=== PATIENT | female | born 1965 | race Caucasian/White ===

== ENCOUNTER 2017-03-10 13:27 | Emergency (ER) | payer SELFPAY ==
[~2017-03-10] VITALS: Ht 160 cm; Wt 85.5 kg
[~2017-03-10 13:27] MED LIST: LEVO150T67 PO; TRAM-174 PO
[2017-03-10 13:42] VITALS: Ht 160 cm; Wt 85.5 kg
[2017-03-10] MEDS ORDERED: ONDANSETRON 4 MG INJ IV STA (14:14)
[2017-03-10] MEDS ORDERED: FAMOTIDINE 20 MG INJ IV STA (14:14)
[2017-03-10] MEDS ORDERED: SOD CHLORIDE 0.9% 1,000 ML IV STA (14:14)
[2017-03-10 14:39] LABS: ADD SCAN DIFF NO
[2017-03-10 14:40] LABS: BASOPHIL # 0.1 10^3/ul (0.0-0.1); BASOPHILS % 0.6 % (0.0-2.0); EOSINOPHILS # 0.2 10^3/ul (0.0-0.5); EOSINOPHILS % 1.4 % (0.0-7.0); HEMATOCRIT 37.4 % (37.0-47.0); HEMOGLOBIN 11.7 g/dl (12.0-16.0); LYMPHOCYTES # 2.8 10^3/ul (0.8-2.9); LYMPHOCYTES % 26.2 % (15.0-51.0); MEAN CORPUSCULAR HEMOGLOBIN 25.7 pg (29.0-33.0); MEAN CORPUSCULAR HGB CONC 31.3 g/dl (32.0-37.0); MEAN PLATELET VOLUME 9.8 fl (7.4-10.4); MONOCYTE # 0.8 10^3/ul (0.3-0.9); MONOCYTES % 7.4 % (0.0-11.0); NEUTROPHIL # 6.9 10^3/ul (1.6-7.5); PLATELET COUNT 496 10^3/UL (140-415); RED BLOOD COUNT 4.56 10^6/ul (4.20-5.40); RED CELL DISTRIBUTION WIDTH 14.3 % (11.5-14.5); WHITE BLOOD COUNT 10.7 10^3/ul (4.8-10.8)
[2017-03-10 14:56] LABS: ALBUMIN 4.3 g/dl (3.3-4.9); POTASSIUM 3.7 mmol/L (3.5-5.1)
[2017-03-10 14:58] LABS: BILIRUBIN,INDIRECT 0.5 mg/dl (0-1.1); BILIRUBIN,TOTAL 0.5 mg/dl (0.2-1.3); CREATININE 0.76 mg/dl (0.44-1.00)
[2017-03-10 14:59] LABS: ALBUMIN/GLOBULIN RATIO 1.04; CALCIUM 9.8 mg/dl (8.4-10.2); TOTAL PROTEIN 8.4 g/dl (6.1-8.1)
[2017-03-10] MEDS ORDERED: ONDA4TAB14 PO (16:37)
--- NOTE | 2017-03-10 16:41 | ERD ---
ER Documentation Chief Complaint Date/Time DATE: 03/10/17 TIME: 16:38 Chief Complaint VOMITING SINCE TUESDAY HPI This is a 51-year-old female who says she has had nausea vomiting on Tuesday and Tuesday last week. She had one episode Tuesday morning but no vomiting since then. The patient says she has no abdominal pain no diarrhea no fever no chest pain shortness of breath. She has normal urine output and bowel movements. She says she is here because she still feels that she is nauseated and really does not want to eat much. She says she will eat some but does not vomit. Again, she has no abdominal pain ROS All systems reviewed and are negative except as per history of present illness. Medications Home Meds Active Scripts Ondansetron (Ondansetron Odt) 4 Mg Tab.rapdis, 4 MG PO Q6H Y for NAUSEA AND/OR VOMITING, #10 TAB Prov:SHANNON LIANG DO 03/10/17 Discontinued Reported Medications Tramadol Hcl-Acetaminophen* (Tramadol Hcl-Acetaminophen*) 1 Tab Tablet, 1 TAB PO PRN 11/15/12 Levothyroxine Sodium* (Levothyroxine Sodium*) 150 Mcg Tablet, 150 MCG PO DAILY 11/15/12 Allergies Allergies: Coded Allergies: No Known Allergy (Unverified , 03/10/17) PMhx/Soc History of Surgery: Yes (TUBAL LIGATION) Anesthesia Reaction: No Hx Neurological Disorder: No Hx Respiratory Disorders: No Hx Cardiac Disorders: No Hx Psychiatric Problems: No Hx Miscellaneous Medical Probl: Yes (cholesterol) Hx Alcohol Use: No Hx Substance Use: No Hx Tobacco Use: No Smoking Status: Never smoker FmHx Family History: No coronary disease Physical Exam Vitals Vital Signs Date Time Temp Pulse Resp B/P Pulse Ox O2 Delivery O2 Flow Rate FiO2 03/10/17 13:42 98.3 76 18 148/90 96 Physical Exam Const: Well-developed, well-nourished Head: Atraumatic, normocephalic Eyes: Normal Conjunctiva, PERRLA, EOMI, normal sclera, no nystagmus ENT: Normal External Ears, Nose and Mouth, moist mucus membranes. Neck: Full range of motion. No meningismus, no lymphadenopathy. Resp: Clear to auscultation bilaterally, no wheezing, rhonchi, rales Cardio: Regular rate and rhythm, no murmurs, S1 S2 present Abd: Soft, non tender x 4, non distended. Normal bowel sounds, no guarding or rebound, no pulsitile abdominal masses or bruits Skin: No petechiae or rashes, no ecchymosis , no maculopapular rash Back: No midline or flank tenderness Ext: No cyanosis, or edema, FROM x 4, normal inspection, neurovascularly intact x 4 Neur: Awake and alert, STR 5/5 x 4, sensation intact x 4, no focal findings, cerebellum intact Psych: Normal Mood and Affect Result Diagram: 03/10/17 1425 03/10/17 1425 Results 24 hrs Laboratory Tests Test 03/10/17 14:25 White Blood Count 10.710^3/ul Red Blood Count 4.5610^6/ul Hemoglobin 11.7g/dl Hematocrit 37.4% Mean Corpuscular Volume 82.0fl Mean Corpuscular Hemoglobin 25.7pg Mean Corpuscular Hemoglobin Concent 31.3g/dl Red Cell Distribution Width 14.3% Platelet Count 93478^3/UL Mean Platelet Volume 9.8fl Neutrophils % 64.0% Lymphocytes % 26.2% Monocytes % 7.4% Eosinophils % 1.4% Basophils % 0.6% Nucleated Red Blood Cells % 0.0/100WBC Neutrophils # 6.910^3/ul Lymphocytes # 2.810^3/ul Monocytes # 0.810^3/ul Eosinophils # 0.210^3/ul Basophils # 0.110^3/ul Nucleated Red Blood Cells # 0.010^3/ul Sodium Level 141mmol/L Potassium Level 3.7mmol/L Chloride Level 99mmol/L Carbon Dioxide Level 30mmol/L Anion Gap 16 Blood Urea Nitrogen 13mg/dl Creatinine 0.76mg/dl Glucose Level 101mg/dl Calcium Level 9.8mg/dl Total Bilirubin 0.5mg/dl Direct Bilirubin 0.00mg/dl Indirect Bilirubin 0.5mg/dl Aspartate Amino Transf (AST/SGOT) 19IU/L Alanine Aminotransferase (ALT/SGPT) 27IU/L Alkaline Phosphatase 71IU/L Total Protein 8.4g/dl Albumin 4.3g/dl Globulin 4.10g/dl Albumin/Globulin Ratio 1.04 Lipase 43U/L Current Medications Medications (Trade) Dose Ordered Sig/Grisel Route PRN Reason Start Time Stop Time Status Last Admin Dose Admin Sodium Chloride (NS) 1,000 ml @ 1,000 mls/hr Q1H STAT IV 03/10/17 14:14 03/10/17 15:13 DC 03/10/17 14:33 Ondansetron HCl (Zofran Inj) 4 mg ONCE STAT IV 03/10/17 14:14 03/10/17 14:16 DC 03/10/17 14:32 Famotidine (Pepcid Iv) 20 mg ONCE STAT IV 03/10/17 14:14 03/10/17 14:16 DC 03/10/17 14:32 Procedures/MDM Blood work is unremarkable. Her exam is normal. No abdominal pain. She has had a bad food exposure or viral illness She feels better Departure Diagnosis: Primary Impression: Vomiting Vomiting type: unspecified Vomiting Intractability: non-intractable Nausea presence: with nausea Qualified Code: R11.2 - Non-intractable vomiting with nausea, unspecified vomiting type Condition: Stable Patient Instructions: Vomiting (6Y-Adult) SHANNON LIANG DO March 10, 2017 16:41
[2017-03-10 17:45] VITALS: BP 139/88; PULSE 75; RESP 19; TEMP 98.4
== END 2017-03-10 17:46 | disposition home or self-care (01) ==
LOC: E/R 13:27
DX: R11.2 Nausea with vomiting, unspecified (principal)
CPT/HCPCS: 36415; 80053; 83690; 85025; 96374; 96375; 99284; J2405; J7030

== ENCOUNTER 2017-07-26 08:44 | Emergency (ER) | payer MEDICAID ==
[~2017-07-26] VITALS: Wt 78.9 kg
[~2017-07-26 08:44] MED LIST changes: -LEVO150T67 PO; +ONDA4TAB14 PO; -TRAM-174 PO
[2017-07-26 10:30] LABS: AADO2 Arterial 13.5 mmHg (7.0-24.0); Allen Test ACCEPTAB; Arterial Base Excess 1.1 mmol/L (-3.0-3); Arterial COHb 0.3 % (0.0-3.0); Arterial Fraction of Oxyhgb 95.9 % (93.0-99.0); Arterial HCO3 25.8 mmol/L (22.0-26.0); Arterial MetHb 0.1 % (0.0-1.5); Arterial Total Hemglobin 12.3 g/dl (12.0-18.0); MODE ROOM AIR
[2017-07-26] MEDS ORDERED: AMOX500C2 PO (11:00)
[2017-07-26 11:13] VITALS: BP 134/75; PULSE 76; RESP 19; TEMP 98.6
--- NOTE | 2017-07-26 12:02 | ERA ---
ER Documentation Chief Complaint Date/Time DATE: 07/26/17 TIME: 11:58 Chief Complaint to carbon monoxide yesterday , wants to have check feels tired HPI Otherwise healthy 51-year-old female presenting with a chief complaint of pharyngitis and general malaise 2 days. Patient also states that she has had a carbon monoxide warning in her apartment where she cannot use certain appliances. Patient states that she thinks some of her symptoms are secondary to this possible exposure. Patient denies any neurological symptoms. Complains of mild headache. Denies fever, nausea, vomiting, diarrhea, constipation, meningismus, shortness breath, chest pain, difficulty breathing, dysphagia, odynophagia. Patient has not taken any medications to relieve the symptoms. No recent travel. Patient has no other complaints and describes no other associated manifestations. Nursing notes have been reviewed and are consistent with history given. ROS All systems reviewed and are negative except as per history of present illness. Medications Home Meds Active Scripts Amoxicillin* (Amoxicillin*) 500 Mg Cap, 500 MG PO TID for 7 Days, CAP Prov:ERAN GIRON PA-C 07/26/17 Ondansetron (Ondansetron Odt) 4 Mg Tab.rapdis, 4 MG PO Q6H Y for NAUSEA AND/OR VOMITING, #10 TAB Prov:SHANNON LIANG DO 03/10/17 Allergies Allergies: Coded Allergies: No Known Allergy (Unverified , 03/10/17) PMhx/Soc History of Surgery: Yes (TUBAL LIGATION) Anesthesia Reaction: No Hx Neurological Disorder: No Hx Respiratory Disorders: No Hx Cardiac Disorders: No Hx Psychiatric Problems: No Hx Miscellaneous Medical Probl: Yes (cholesterol, thyroid) Hx Alcohol Use: No Hx Substance Use: No Hx Tobacco Use: No Physical Exam Vitals Vital Signs Date Time Temp Pulse Resp B/P Pulse Ox O2 Delivery O2 Flow Rate FiO2 07/26/17 11:13 98.6 76 19 134/75 100 Room Air 07/26/17 08:49 98.1 82 18 163/73 99 Physical Exam Const: Overweight 51-year-old female no acute distress Head: Atraumatic Eyes: Normal Conjunctiva ENT: Normal External Ears, Nose. Erythematous oropharynx with enlarged tonsils bilaterally. No exudates visualized. Neck: Full range of motion..~ No meningismus. Resp: Clear to auscultation bilaterally. No tripoding, no accessory muscle use. Equal chest expansion bilaterally. No hot potato voice. Cardio: Regular rate and rhythm, no murmurs Abd: Soft, non tender, non distended. Normal bowel sounds Skin: No petechiae or rashes Back: No midline or flank tenderness Ext: No cyanosis, or edema Neur: Awake and alert Psych: Normal Mood and Affect Results 24 hrs Laboratory Tests Test 07/26/17 10:16 Blood Gas Specimen Source Blood arterial Arterial Blood Date Drawn 07/26/2017 10:20:22 AM Arterial Blood pH (Temp corrected) 7.413 Arterial Blood pCO2 (Temp correct) 41.3mmhg Arterial Blood pO2 (Temp corrected) 86.8mmHG Arterial Blood HCO3 25.8mmol/L Arterial Blood Base Excess 1.1mmol/L Arterial Blood Oxygen Saturation 96.3mmHG Humza Test ACCEPTAB Arterial Blood Gas Puncture Site Left Radial Arterial Blood Carboxyhemoglobin 0.3% Arterial Blood Methemoglobin 0.1% Blood Gas A-a O2 Differential 13.5mmHg Oxyhemoglobin Percent 95.9% Total Hemoglobin 12.3g/dl Blood Gas Temperature 37.0C Blood Gas Modality ROOM AIR FiO2 21.0% Blood Gas Notified Whom MDA Blood Gas Notified Time 07/26/2017 10:30:09 AM Procedures/MDM 51-year-old female presenting with the chief complaints of general malaise and pharyngitis as described in the history and physical examination. Due to possible exposure of carbon monoxide I presented the case my attending Dr. Lopez who suggested getting an ABG. ABG was obtained. ABG was unremarkable. At this time I will suspicion for carbon monoxide poisoning, airway obstructive pathologies, or serious bacterial infection. Most likely diagnosis is pharyngitis viral versus bacterial. Patient will be discharged with azithromycin due to penicillin allergy. Will also be prescribed ibuprofen for discomfort and inflammation. I have spoke with the patient regarding their condition and future management. They have verbally responded that they understand their status and treatment plan. The patients vitals are stable, and their current condition is appropriate for discharge. The patient will be given discharge instructions with return precautions. Departure Diagnosis: Primary Impression: Pharyngitis Qualified Code: J02.9 - Pharyngitis, unspecified etiology Condition: Stable Patient Instructions: Pharyngitis, Strep (Presumed) Additional Instructions: Bella un seguimiento con quintana PCP dentro de los prximos 1-3 glover para danika evaluaci n ms completa y danika posible derivacin a un especialista. Devuelva el departamento de emergencia inmediatamente si los sntomas empeoran o cambian. Si tiene alguna pregunta con respecto a los medicamentos, consulte con quintana farmac utico o con nosotros antes de salir. Si se producen reacciones adversas mientras ariella flavio medicamentos, suspenda el tratamiento y regrese inmediatamente al servicio de urgencias. [place] flavio medicamentos segn las indicaciones y complete el curso completo del tratamiento. ERAN GIRON PA-C Jul 26, 2017 12:02
== END 2017-07-26 11:14 | disposition home or self-care (01) ==
LOC: FTE 08:44
DX: J02.9 Acute pharyngitis, unspecified (principal)
CPT/HCPCS: 36600; 82803; Z7502; 99283

== ENCOUNTER 2017-09-07 14:07 | Emergency (ER) | payer SELFPAY ==
[~2017-09-07] VITALS: Wt 82.2 kg
[~2017-09-07 14:07] MED LIST changes: +AMOX500C2 PO
[2017-09-07 14:11] VITALS: Wt 82.2 kg
[2017-09-07] MEDS ORDERED: SOD CHLORIDE 0.9% 1,000 ML IV STA (16:19)
[2017-09-07] MEDS ORDERED: KETOROLAC 30 MG INJ IV STA (16:19)
[2017-09-07] MEDS ORDERED: ONDANSETRON 4 MG INJ IV STA (16:19)
[2017-09-07] MEDS ORDERED: morphine 4 MG/ML VIAL IV STA (16:19)
[2017-09-07 17:27] VITALS: BP 128/76; PULSE 76; RESP 20; TEMP 98.2
[2017-09-07] MEDS ORDERED: CEPHALEXIN 500 MG CAP PO ONE (18:00)
--- NOTE | 2017-09-07 18:15 | RADRPT ---
PROCEDURE: CT Abdomen and Pelvis without contrast. CLINICAL INDICATION: Abdominal and pelvic pain. Flank pain. TECHNIQUE: CT scan of the abdomen and pelvis without contrast was performed. Coronal and sagittal reformatted images were obtained from the axial source images. Images were reviewed on a high-[employer] PACS workstation. Total exam DLP is 918.22 mGy-cm. CTDIvol is 15.58 mGy. One or more of the f ollowing dose reduction techniques were used: Automated exposure control, adjustment of the mA and/o r kV according to patient size, use of iterative reconstruction technique. COMPARISON: Right upper quadrant abdomen ultrasound dated 10/07/2013 which demonstrated gallstones in the gallbladder. FINDINGS: The lung bases are normal. There is no pleural effusion. The liver is normal in size and attenuation. There is no focal hepatic lesion. The gallbladder is surgically absent with clips noted in the gallbladder bed. The bile ducts are nor mal. The spleen is normal in size. There is no focal splenic lesion. Both adrenals are normal with no enlargement or mass. The pancreas is unremarkable with no mass or evidence of pancreatitis. There is a nonobstructing 0.2 cm calculus in the mid right kidney. There is no right hydronephrosis. There is no right renal mass. The right ureter is normal. There is no left renal calculus. There is an obstructing 0.4 cm calculus in the proximal left ureter at the L2-3 level. There is associated m oderate left hydronephrosis. There is mild left renal atrophy and thinning of the left renal parenc hyma indicating this may be a chronic process. The left ureter is otherwise normal. The abdominal aorta is not dilated. There is no retroperitoneal lymphadenopathy or mass. There is no pelvic lymphadenopathy or mass. The bladder and distal ureters are normal. The appendix is well seen and appears normal. The bowel and mesentery are normal. There is no free fluid or free gas. The osseous structures are unremarkable with no fracture or lytic lesion. IMPRESSION: 1. Status post cholecystectomy. 2. Nonobstructing 0.2 cm calculus in the mid right kidney. 3. Obstructing 0.4 cm calculus in the proximal left ureter at the L2-3 level with resultant moderat e left hydronephrosis. 4. Thinning of the left renal parenchyma indicating this may be chronic left hydronephrosis. 5. Normal appendix. 6. Otherwise unremarkable study. RPTAT: QQ .David Ga MD, MD Date Time Electronically viewed and signed by .David Ga MD, on 09/07/2017 18:14 .R/
[2017-09-07] MEDS ORDERED: CEPH-443 PO (18:57)
[2017-09-07] MEDS ORDERED: HYDR-902 PO (18:57)
[2017-09-07] MEDS ORDERED: ONDA4TAB14 PO (18:57)
[2017-09-07] MEDS ORDERED: IBUP-1542 PO (19:00)
--- NOTE | 2017-09-07 20:15 | ERD ---
ER Documentation Chief Complaint Chief Complaint pt. states "left kidney pain", nausea HPI Patient is a 52-year-old female with a history of kidney stones who presents with left-sided flank pain. It started 2 days ago. Sharp in nature and comes and goes. Today was worse. She tried Aleve. She has had no fevers but she felt chills. She says that it feels like a kidney stone. She does not currently have a primary doctor. Upon review of old medical records this is the patient's sixth visit to the ER since 2012. ROS All systems reviewed and are negative except as per history of present illness. Medications Home Meds Active Scripts Ibuprofen* (Motrin*) 600 Mg Tab, 600 MG PO Q6H Y for PAIN AND OR ELEVATED TEMP, #30 TAB Prov:SHELBY COWAN MD 09/07/17 Ondansetron (Ondansetron Odt) 4 Mg Tab.rapdis, 4 MG PO Q6H Y for NAUSEA AND/OR VOMITING, #30 TAB Prov:SHELBY COWAN MD 09/07/17 Hydrocodone/Acetaminophen (Ch[place]wick 10-325 Tablet) 1 Each Tablet, 1 TAB PO Q6H Y for PAIN, #12 TAB Prov:SHELBY COWAN MD 09/07/17 Cephalexin* (Keflex*) 500 Mg Capsule, 500 MG PO QID for 7 Days, CAP Prov:SHELBY COWAN MD 09/07/17 Amoxicillin* (Amoxicillin*) 500 Mg Cap, 500 MG PO TID for 7 Days, CAP Prov:ERAN GIRON PA-C 07/26/17 Ondansetron (Ondansetron Odt) 4 Mg Tab.rapdis, 4 MG PO Q6H Y for NAUSEA AND/OR VOMITING, #10 TAB Prov:SHANNON LIANG DO 03/10/17 Allergies Allergies: Coded Allergies: No Known Allergy (Unverified , 03/10/17) PMhx/Soc History of Surgery: Yes (TUBAL LIGATION, CHOLECYSTECTOMY ) Anesthesia Reaction: No Hx Neurological Disorder: No Hx Respiratory Disorders: No Hx Cardiac Disorders: Yes (HIGH CHOLESTEROL ) Hx Psychiatric Problems: No Hx Miscellaneous Medical Probl: Yes (KIDNEY STONES ) Hx Alcohol Use: No Hx Substance Use: No Hx Tobacco Use: No Smoking Status: Never smoker FmHx Family History: No diabetes Physical Exam Vitals Vital Signs Date Time Temp Pulse Resp B/P Pulse Ox O2 Delivery O2 Flow Rate FiO2 09/07/17 17:27 98.2 76 20 128/76 98 Room Air 09/07/17 14:11 98.2 67 20 140/82 98 Physical Exam Const: Moderate distress secondary to flank pain Head: Atraumatic Eyes: Normal Conjunctiva ENT: Normal External Ears, Nose and Mouth. Neck: Full range of motion..~ No meningismus. Resp: Clear to auscultation bilaterally Cardio: Regular rate and rhythm, no murmurs Abd: Soft, left-sided flank pain Skin: No petechiae or rashes Back: No midline or flank tenderness Ext: No cyanosis, or edema Neur: Awake and alert Psych: Normal Mood and Affect Result Diagram: 09/07/17 1625 09/07/17 1625 Results 24 hrs Laboratory Tests Test 09/07/17 15:55 09/07/17 16:25 Urine Color YELLOW Urine Clarity CLEAR Urine pH 6.0 Urine Specific [place] 1.014 Urine Ketones NEGATIVEmg/dL Urine Nitrite NEGATIVEmg/dL Urine Bilirubin NEGATIVEmg/dL Urine Urobilinogen NEGATIVEmg/dL Urine Leukocyte Esterase 1+Sabrina/ul Urine Microscopic RBC 2/HPF Urine Microscopic WBC 21/HPF Urine Hemoglobin 1+mg/dL Urine Glucose NEGATIVEmg/dL Urine Total Protein NEGATIVEmg/dl White Blood Count 17.110^3/ul Red Blood Count 4.6110^6/ul Hemoglobin 11.3g/dl Hematocrit 37.4% Mean Corpuscular Volume 81.1fl Mean Corpuscular Hemoglobin 24.5pg Mean Corpuscular Hemoglobin Concent 30.2g/dl Red Cell Distribution Width 15.8% Platelet Count 95803^3/UL Mean Platelet Volume 9.9fl Neutrophils % 66.6% Lymphocytes % 24.5% Monocytes % 7.2% Eosinophils % 0.9% Basophils % 0.4% Nucleated Red Blood Cells % 0.0/100WBC Neutrophils # 11.410^3/ul Lymphocytes # 4.210^3/ul Monocytes # 1.210^3/ul Eosinophils # 0.210^3/ul Basophils # 0.110^3/ul Nucleated Red Blood Cells # 0.010^3/ul Sodium Level 140mmol/L Potassium Level 4.0mmol/L Chloride Level 99mmol/L Carbon Dioxide Level 31mmol/L Anion Gap 14 Blood Urea Nitrogen 18mg/dl Creatinine 0.82mg/dl Glucose Level 89mg/dl Calcium Level 9.2mg/dl Total Bilirubin 0.4mg/dl Direct Bilirubin 0.00mg/dl Indirect Bilirubin 0.4mg/dl Aspartate Amino Transf (AST/SGOT) 19IU/L Alanine Aminotransferase (ALT/SGPT) 22IU/L Alkaline Phosphatase 75IU/L Total Protein 8.0g/dl Albumin 4.3g/dl Globulin 3.70g/dl Albumin/Globulin Ratio 1.16 Lipase 58U/L Current Medications Medications (Trade) Dose Ordered Sig/Grisel Route PRN Reason Start Time Stop Time Status Last Admin Dose Admin Sodium Chloride (NS) 1,000 ml @ 1,000 mls/hr Q1H STAT IV 09/07/17 16:19 09/07/17 17:18 DC 09/07/17 16:24 Morphine Sulfate (morphine) 4 mg ONCE STAT IV 09/07/17 16:19 09/07/17 16:20 DC 09/07/17 16:25 Ondansetron HCl (Zofran Inj) 4 mg ONCE STAT IV 09/07/17 16:19 09/07/17 16:20 DC 09/07/17 16:25 Ketorolac Tromethamine (Toradol) 30 mg ONCE STAT IV 09/07/17 16:19 09/07/17 16:20 DC 09/07/17 16:25 Cephalexin (Keflex) 500 mg ONCE ONCE PO 09/07/17 18:00 09/07/17 18:01 DC 09/07/17 17:46 Procedures/MDM CT scan shows 0.4 cm stone in the left ureter per radiology. Smoking Cessation Therapy: Pt. was lectured for greater than 3 minutes on the health risks of continued smoking and the benefits of cessation. Patient is a 52-year-old female who presents with kidney stone. She had a mild urine infection as well. The patient feels much better with fluids, pain medicine, and nausea medicine. I believe outpatient management is appropriate and I do not believe she requires inpatient admission at this time. I doubt sepsis. She does have an elevated white blood cell count which is likely due to the urine infection. The patient will be treated with Keflex, [place], ibuprofen, and Zofran. She will need to follow-up with Dr. Silverio from urology or the urologist of her choice within 24-48 hours for potential lithotripsy. She can return sooner for any worsening symptoms. Patient understands the plan is okay for discharge at this time. She was afebrile in the ER. Departure Diagnosis: Primary Impression: Cystitis Additional Impressions: Kidney stone Flank pain Condition: Fair Patient Instructions: Cystitis, Kidney Stone W/ Colic Referrals: KATEY SILVERIO MD Additional Instructions: Specialist:Usted tiene danika condicin mdica que requiere que aminta a un especialista dentro de los prximos 1-2 glover.POR FAVOR,CON NICE SEGUIMIENTO DE PRIMARIA PHSICIAN refferal. SI USTED NO TIENE UN MDICO GENERAL Y / O USTED NO PUEDE PAGAR brandi a un mdico,los siguientes mckeon RECURSOS sido suministrado a usted. ES NICE RESPONSABILIDAD PARA SER VISTOS POR EL ESPECIALISTA: SHELBY COWAN MD Sep 07, 2017 20:15
== END 2017-09-07 19:17 | disposition home or self-care (01) ==
LOC: E/R 14:07
DX: N30.90 Cystitis, unspecified without hematuria (principal); N20.0 Calculus of kidney
CPT/HCPCS: 36415; 74176; 80053; 81001; 83690; 85025; 96374; 96375; 99285; J1885; J2270; J2405; J7030